=== PATIENT | female | born 1975 | race Caucasian/White ===

== ENCOUNTER 2019-03-18 10:53 | Emergency (ER) | payer BC ==
[~2019-03-18] VITALS: Ht 149.9 cm; Wt 70.3 kg
[2019-03-18 10:55] VITALS: BP_SYST 190
--- NOTE | 2019-03-18 11:30 | NUR ---
BROUGHT BACK TO BED #2 AND REPORT GIVEN TO ASHOK.
[2019-03-18 11:36] LABS: BASOPHILS # (AUTO) 0.1 K/uL (0.0-0.2); BASOPHILS % (AUTO) 0.8 % (0.0-2.0); EOSINOPHILS # (AUTO) 0.2 K/uL (0.0-0.4); EOSINOPHILS % (AUTO) 2.6 % (0.0-4.0); HEMATOCRIT 40.3 % (36-48); HEMOGLOBIN 13.9 g/dL (12.0-16.0); LYMPHOCYTES # (AUTO) 2.4 K/uL (1.0-5.5); LYMPHOCYTES % (AUTO) 29.4 % (20.5-51.5); MEAN CORPUSCULAR HEMOGLOBIN 30 pg (27-31); MEAN CORPUSCULAR HGB CONC 34 % (32-36); MEAN CORPUSCULAR VOLUME 88 fL (79.0-98.0); MONOCYTES # (AUTO) 0.5 K/uL (0.0-1.0); MONOCYTES % (AUTO) 6.7 % (1.7-9.3); NEUTROPHILS # (AUTO) 4.9 K/uL (1.8-7.7); NEUTROPHILS % (AUTO) 60.5 % (40.0-70.0); PLATELET COUNT (AUTO) 203 K/uL (130-430); RED BLOOD CELL COUNT(AUTO) 4.57 MIL/uL (4.2-6.2); RED CELL DISTRIBUTION WIDTH 13.4 % (9.0-15.0)
--- NOTE | 2019-03-18 11:42 | NUR ---
Pt AAOx4 ambulated into ED c/o 04/23 pain to lower abdomen which increases when eating accompanying nausea and constipation. Skin pink dry and warm, breathing even and unlabored. No other injuries/complaints per pt/noted. Will continue to monitor.
[2019-03-18 11:47] LABS: CALCIUM 9.4 mg/dL (8.4-11.0); CREATININE 0.6 mg/dL (0.55-1.30); POTASSIUM 3.7 mmol/L (3.5-5.1)
[2019-03-18 11:49] LABS: BILIRUBIN,URINE 1+ (NEGATIVE); COLOR,URINE YELLOW (YELLOW); GLUCOSE,URINE 2+ (NEGATIVE); KETONES,URINE TRACE (NEGATIVE); LEUKOCYTE ESTERASE ,URINE NEGATIVE (NEGATIVE); NITRITE, URINE NEGATIVE (NEGATIVE); PH,URINE 5.5 (5.0-8.0); PROTEIN URINE 1+ (NEGATIVE); UROBILINOGEN,URINE 0.2 (0.2-1.0)
[2019-03-18 11:50] LABS: INR 0.9 (0.8-1.2); PROTHROMBIN TIME 9.7 SECS (9.5-12.5)
--- NOTE | 2019-03-18 11:50 | NUR ---
ER at bedside examining patient.
[2019-03-18 11:51] LABS: ALBUMIN 3.7 g/dL (3.4-4.8); TOTAL BILIRUBIN 1.4 mg/dL (0.0-1.0)
[2019-03-18 11:51] LABS: BLOOD, URINE TRACE (NEGATIVE); CLARITY/URINE CLEAR (CLEAR)
[2019-03-18 12:02] LABS: BACTERIA,URINE FEW /HPF (None Seen); MUCUS,URINE 1+ /LPF (None Seen); RBC,URINE 0-3 /HPF (0-3); WBC,URINE 0-3 /HPF (0-3)
--- NOTE | 2019-03-18 13:00 | NUR ---
Patient resting comfortably, needs are met, aware we are waiting for results and MD to follow up with her. Will continue to follow up and monitor.
--- NOTE | 2019-03-18 14:20 | NUR ---
Patient given written and verbal discharge instructions and verbalizes understanding. ER MD discussed with patient the results and treatment provided. Patient in stable condition. ID arm band removed. Rx of Tramadol, Flagyl, Tylenol, Zofran, Cipro, Colace given. Patient educated on pain management and to follow up with PMD. Pain Scale 3/10. Opportunity for questions provided and answered. Medication side effect fact sheet provided.
[2019-03-18 14:24] VITALS: BP_SYST 144
== END 2019-03-18 14:24 | disposition home or self-care (01) ==
LOC: SED 10:53
DX: R10.31 Right lower quadrant pain (principal); R10.32 Left lower quadrant pain; E11.9 Type 2 diabetes mellitus without complications; I10 Essential (primary) hypertension; Z90.49 Acquired absence of other specified parts of digestive tract
CPT/HCPCS: 36415; 80053; 81000-TC; 81025; 83690-TC; 84484; 84703; 85025; 85610-TC; 85730-TC; 93005; 99284